=== PATIENT | male | born 1975 | race Two or more races ===

== ENCOUNTER 2017-01-13 15:37 | Inpatient (IN) | payer MEDICAID ==
[~2017-01-13] VITALS: Ht 170.2 cm; Wt 62.5 kg
[2017-01-13] MEDS ORDERED: VANCOMYCIN PER PHARMACY IV ONE (16:00)
[2017-01-13 16:46] LABS: BLOOD UREA NITROGEN 58 mg/dL (7-18)
[2017-01-13] MEDS ORDERED: VANCOMYCIN 1,200 MG in SODIUM CHLORIDE 0.9% 250 ML IV ONE (17:00)
[2017-01-13] MEDS ORDERED: SODIUM CHLORIDE FLUSH 10ML SYR IVF ONE (17:00)
[2017-01-13] MEDS ORDERED: HYDROcodone/APAP 5/325 TABLET ONE (17:07)
[2017-01-13] MEDS ORDERED: HYDROcodone/APAP 5/325 TABLET PO ONE (17:30)
[2017-01-13] MEDS ORDERED: ONDANSETRON ODT 4 MG PO PRN (18:30)
[2017-01-13] MEDS ORDERED: LABETALOL 5MG/ML 40ML VIAL IVPush PRN (18:30)
[2017-01-13] MEDS ORDERED: DOCUSATE 100 MG CAPSULE PO PRN (18:30)
[2017-01-13] MEDS ORDERED: ACETAMINOPHEN 325 MG TABLET PO PRN (18:30)
[2017-01-13] MEDS ORDERED: DIPHENHYDRAMINE 25 MG CAPSULE PO PRN (18:30)
[2017-01-13] MEDS ORDERED: VANCOMYCIN PER PHARMACY MC PRN (18:30)
[2017-01-13 18:36] VITALS: BP 129/87
[2017-01-13] MEDS ORDERED: PHARMACOKINETIC CONSULTATION MC ONE (19:00)
[2017-01-13] MEDS ORDERED: PHARMACOKINETIC MONITORING MC PRN (19:00)
[2017-01-13] MEDS ORDERED: VANCOMYCIN PMX 1GM/200ML 200 ML IV ONE (19:00)
[2017-01-13] MEDS: HEPARIN 5,000 UNITS/ML, 1ML SQ SCH (20:15)
[2017-01-14 01:32] VITALS: BP 135/76
[2017-01-14] MEDS: HEPARIN 5,000 UNITS/ML, 1ML SQ SCH ×3 (05:17→22:20)
[2017-01-14 06:07] LABS: ASPARTATE AMINO TRANSFERASE 29 U/L (15-37); BLOOD UREA NITROGEN 67 mg/dL (7-18)
[2017-01-14 07:05] VITALS: BP 127/82
[2017-01-14] MEDS ORDERED: PHARMACY INSTRUCTION MC SCH (09:30)
[2017-01-14] MEDS: AMPICILLIN/SULBACTAM 3 GM in SODIUM CHLORIDE 0.9% 100 ML IV SCH (10:23)
[2017-01-14 12:05] VITALS: BP 132/82
[2017-01-14 15:00] VITALS: BP 138/84
[2017-01-14] MEDS ORDERED: CINA60TA PO (16:21)
[2017-01-14] MEDS ORDERED: METO50TA82 PO (16:21)
[2017-01-14] MEDS ORDERED: FOLI1CAP9 PO (16:21)
[2017-01-14] MEDS ORDERED: LISI-170 PO (16:21)
[2017-01-14] MEDS ORDERED: CLOP75TA PO (16:21)
[2017-01-14] MEDS ORDERED: LANT500T PO (16:21)
[2017-01-14] MEDS ORDERED: AMLO10TA2 PO (16:21)
[2017-01-14 21:28] VITALS: BP_SYST 163; BP_SYST 165; BP_DIAS 88; BP_DIAS 93
[2017-01-15 02:02] VITALS: BP 131/77
[2017-01-15] MEDS: HEPARIN 5,000 UNITS/ML, 1ML SQ SCH ×3 (05:49→21:00)
[2017-01-15] MEDS: METOPROLOL TARTRATE 50 MG TABLET PO SCH ×2 (05:49→21:01)
[2017-01-15 05:57] LABS: BLOOD UREA NITROGEN 99 mg/dL (7-18)
[2017-01-15 06:03] LABS: ASPARTATE AMINO TRANSFERASE 24 U/L (15-37)
[2017-01-15] MEDS: [UNRECOGNIZED DRUG - OTHER] HOMEMEDPO SCH ×3 (07:00→21:01)
[2017-01-15] MEDS: LANTHANUM CARBONATE HOMEMEDPO SCH ×3 (07:00→21:01)
[2017-01-15 08:22] VITALS: BP 157/87
[2017-01-15] MEDS ORDERED: CINACALCET 30 MG TABLET PO SCH (09:00)
[2017-01-15] MEDS ORDERED: RENAL VITAMIN PO SCH (09:00)
[2017-01-15] MEDS ORDERED: CLOPIDOGREL 75 MG TABLET PO SCH (09:00)
[2017-01-15] MEDS ORDERED: SULF1TAB24 PO (09:38)
[2017-01-15] MEDS ORDERED: AMOX1TAB64 PO (09:38)
[2017-01-15] MEDS ORDERED: SIMV20TA PO (09:45)
[2017-01-15 14:14] VITALS: BP 140/86
[2017-01-15 20:00] VITALS: BP 153/82
[2017-01-15] MEDS: AMPICILLIN/SULBACTAM 3 GM in SODIUM CHLORIDE 0.9% 100 ML IV SCH (21:00)
== END 2017-01-16 01:01 | disposition home or self-care (01) | DRG 602 ==
LOC: ED 17:33 → EDIP 18:00 → 4WST 18:32
PROVIDERS: ADMIT Internal Medicine; ATTEND Internal Medicine
PROC: 5A1D00Z (ICD-10-PCS; principal; 2017-01-15)
DX: L03.116 Cellulitis of left lower limb (principal); N18.6 End stage renal disease; I13.11 Hypertensive heart and chronic kidney disease without heart failure, with stage 5 chronic kidney disease, or end stage renal disease; N25.81 Secondary hyperparathyroidism of renal origin; D63.1 Anemia in chronic kidney disease; I73.9 Peripheral vascular disease, unspecified; N25.0 Renal osteodystrophy; Z99.2 Dependence on renal dialysis; Z87.891 Personal history of nicotine dependence
CPT/HCPCS: 36415; 80048; 80053; 80061; 82040; 83036; 83605; 83735; 84100; 84145; 85025; 85651; 86140; 87040; 96365; 96366; J0295; J1644; J3370; J7050